=== PATIENT | male | born 1950 | race Caucasian/White ===

== ENCOUNTER 2022-11-13 11:39 | Emergency (ER) | payer OTHER, SELFPAY ==
[2022-11-13] VITALS (39 sets, daily range): BP systolic 34–148; BP diastolic 20–122; PULSE 70–180; RESP 12–18; TEMP 35.2–36.6; O2SAT 66–100; BMI 24.3
--- NOTE | 2022-11-13 | CRLHL7_ITS ---
For Patients: As a result of the Cures Act, medical imaging exams and procedure reports are released immediately into your electronic medical record. You may view this report before your referring provider. If you have questions, please contact your health care provider. INDICATION: Fall, on thinners. COMPARISON: None. TECHNIQUE: CT of the head without IV contrast. Coronal and sagittal reconstructions. FINDINGS: No intracranial hemorrhage, mass effect, or evidence of acute infarct. No midline shift. No abnormal extra-axial fluid collections. Mild generalized cerebral and cerebellar volume loss. Normal caliber ventricular system. Physiologic basal ganglia calcification on the right. Orbits and extraocular muscles are symmetric. The paranasal sinuses and mastoid air cells are clear. No acute fracture identified. Soft tissues are unremarkable. IMPRESSION: No acute intracranial findings. Please note that all CT scans at this facility use dose modulation, iterative reconstruction, and/or weight-based dosing when appropriate to reduce radiation dose to as low as reasonably achievable. Dictated by Bettie Nicole MD @ 11/13/2022 12:44:24 PM (Electronically Signed)
--- NOTE | 2022-11-13 | CRLHL7_ITS ---
For Patients: As a result of the Cures Act, medical imaging exams and procedure reports are released immediately into your electronic medical record. You may view this report before your referring provider. If you have questions, please contact your health care provider. INDICATION: Fall. COMPARISON: None. TECHNIQUE: CT of the cervical spine without IV contrast. Coronal and sagittal reconstructions. FINDINGS: No acute fracture or traumatic malalignment of the cervical spine. Mild anterolisthesis of C2 on C3. No significant disc space narrowing. Multilevel endplate spurring, facet arthropathy, and varying degrees of neural foraminal narrowing. Mild spinal canal stenosis at C3-C4, C4-C5, and C6-C7. No prevertebral soft tissue swelling. Visualized intracranial contents are unremarkable. The mastoid air cells are clear. IMPRESSION: 1. No acute fracture or traumatic malalignment of the cervical spine. 2. Spondylotic changes as described above. Please note that all CT scans at this facility use dose modulation, iterative reconstruction, and/or weight-based dosing when appropriate to reduce radiation dose to as low as reasonably achievable. Dictated by Bettie Nicole MD @ 11/13/2022 12:52:54 PM (Electronically Signed)
--- NOTE | 2022-11-13 11:55 | CRLHL7_ITS ---
For Patients: As a result of the Century Cures Act, medical imaging exams and procedure reports are released immediately into your electronic medical record. You may view this report before your referring provider. If you have questions, please contact your health care provider. INDICATION: Trauma TECHNIQUE: Chest 2 views. COMPARISON: None FINDINGS: Cardiovascular and mediastinum: Heart size and vasculature are normal in caliber and appearance. Mediastinum is within normal limits. Lungs and pleural spaces: Lungs are clear. No sign of infiltrate or mass. No sign of pleural effusion. No pneumothorax. Bones and soft tissues: Degenerative changes thoracic spine. IMPRESSION: Unremarkable chest. Dictated by Lai Chaparro MD @ 11/13/2022 12:48:17 PM Dictated by: Lai Chaparro MD @ 11/13/2022 12:48:20 (Electronically Signed)
--- NOTE | 2022-11-13 11:58 | CRLHL7_ITS ---
For Patients: As a result of the Cures Act, medical imaging exams and procedure reports are released immediately into your electronic medical record. You may view this report before your referring provider. If you have questions, please contact your health care provider. Indication: Low back pain Technique: Two views of the lumbosacral spine were acquired Comparison: There are no prior studies for comparison Findings: Bone mineral density is decreased. There are moderate to severe degenerative changes diffusely. This involves the disc spaces and the facet joints. There is no visible acute fracture, dislocation or destructive process. Calcifications in the right upper quadrant are probably calcified lymph nodes. Impression: Demineralization. Significant degenerative changes. No visible acute fracture, dislocation or destructive process. Dictated by Phu Pittman MD @ 11/13/2022 1:19:13 PM (Electronically Signed)
[2022-11-13] MEDS: 0.9 % SODIUM CHLORIDE 1000 ml 1,000 ML IV (12:00)
[2022-11-13 12:08] LABS: Lactate* 3.4 mmol/L (0.5-1.9)
[2022-11-13 12:18] LABS: Hemoglobin* 14.5 gm/dL (13.5-17.5); Immature Granulocytes Pct Auto 0.5 %; Lymphocytes Percent Auto 3.9 % (20-44); Mean Corpuscular HGB Conc 34 gm/dL (32-36); Mean Corpuscular Hemoglobin 30 pg (26-34); Mean Corpuscular Volume 89 fL (80-100); Monocytes Percent Auto 6.2 % (0.0-11.0); Neutrophils Percent Auto 89.4 % (42.0-72.0); Platelet Count* 200 K/uL (140-440); RDW Coefficient of Variation % 12.8 % (11.5-15.5); Red Blood Count 4.85 m/uL (4.30-5.90); White Blood Count* 20.83 K/uL (4.50-11.00)
[2022-11-13 12:21] LABS: Slide Review Reflex No
--- NOTE | 2022-11-13 12:23 | ED.NURSE ---
Pt back from CT. Hr remains into 140s. IV fluids given per OCT.
[2022-11-13 12:27] LABS: Chloride* 97 mmol/L (96-114)
[2022-11-13 12:28] LABS: Potassium* 3.9 mmol/L (3.6-5.1); Sodium* 129 mmol/L (135-149)
[2022-11-13 12:30] LABS: Creatinine* 0.7 mg/dL (0.5-1.5); Est. Creatinine Clearance* 60.59; Estimated Glomerular Filt Rate 97 ml/min; Lipase* 38 U/L (23-300)
[2022-11-13 12:31] LABS: Bilirubin Direct* 0.1 mg/dL (0.0-0.5); Bilirubin Total* 1.7 mg/dL (0.1-1.5); Blood Urea Nitrogen* 18 mg/dL (7-30); Calcium* 8.5 mg/dL (8.4-10.6); Carbon Dioxide* 23 mmol/L (20-32); Glucose* 150 mg/dL (60-115); Total Protein* 7.1 g/dL (6.0-8.3)
[2022-11-13 12:32] LABS: Alanine Aminotransferase* 27 U/L (4-50); Alkaline Phosphatase* 71 U/L (40-150); Aspartate Amino Transferase* 42 U/L (12-35)
[2022-11-13 12:33] LABS: Ethanol* < 0.01 % (0.01-0.03)
[2022-11-13 12:34] LABS: C Reactive Protein* 6.6 mg/dL (0.5-1.0)
[2022-11-13 12:39] LABS: D Dimer Quantitative* 8.78 ug/ml (0.00-0.50)
[2022-11-13 12:41] LABS: NT Pro B Type NatriureticPept* 3560 pg/mL
[2022-11-13 12:43] LABS: Troponin I* 0.04 ng/mL (0.01-0.04)
[2022-11-13 12:47] LABS: INR 1.16 (0.91-1.10); Prothrombin Time 15.5 Seconds
[2022-11-13 12:48] LABS: Partial Thromboplastin Time* 26 Seconds (23-33)
[2022-11-13 12:52] LABS: PCR FLU A Negative PCR FLU A (Negative); PCR FLU B Negative PCR FLU B (Negative); PCR RSV Negative PCR RSV (Negative)
[2022-11-13 12:57] LABS: SARS PCR* Negative SARS-CoV-2 (Negative)
[2022-11-13] MEDS: LORazepam 2 MG/ML inj 1 MG IVP (13:15)
--- NOTE | 2022-11-13 13:15 | ED.NURSE ---
Called into patient room by pts daughter. Patient having seizure like activity, not responsive to commands. MD called to beside. Dr Mcadams at bedside immediately. 1mg ativan verbal order. Given by STAN Pantoja.
--- NOTE | 2022-11-13 13:18 | ED.NURSE ---
Dr Mcadams at bedside completing bedside ultrasound. Believes patient has a ruptured AAA. Textile Supervisor verblized to facilities technician to clear CT scan for emergent CT. STAGE SET DESIGNER to call in air transport for transfer. [facility]W contacted for tx.
--- NOTE | 2022-11-13 13:20 | ED.NURSE ---
BG checked - 147. Dr Mcadams at bedside. Talking with Daughter.
[2022-11-13 13:28] LABS: Magnesium* 1.7 mg/dL (1.5-2.6)
--- NOTE | 2022-11-13 13:37 | ED.NURSE ---
Patient minimally responsive. Unable to obtain blood pressure. Seizure like activity restarted. Dr Mcadams at bedside. Decision made to intubate. Code called 1338. See code blue record for remaining of documention.
[2022-11-13] MEDS: 0.9 % SODIUM CHLORIDE 1000 ml 1,000 ML 6000 ML IV ×3 (13:38→14:24)
[2022-11-13] MEDS: SUCCINYLCHOLINE 20 MG/ML INJ 200 MG IVP (13:42)
[2022-11-13] MEDS: ETOMIDATE 2 MG/ML inj 30 MG IVP (13:42)
--- NOTE | 2022-11-13 13:42 | CRLHL7_ITS ---
For Patients: As a result of the Century Cures Act, medical imaging exams and procedure reports are released immediately into your electronic medical record. You may view this report before your referring provider. If you have questions, please contact your health care provider. Indication: Abdominal aortic aneurysm. The new onset abdominal pain Technique: Contiguous axial CTA images of the chest/abdomen/pelvis were acquired after the uneventful administration of IV contrast. Coronal and sagittal reformations generated and reviewed. 3D reconstructed images generated on an independent workstation. Comparison: None Findings: Vascular: Normal heart size. Coronary artery calcification. The thoracic aorta demonstrates no aneurysm or dissection. Three vessel aortic arch. The celiac trunk is markedly attenuated which may be due to vasospasm. The renal arteries are patent bilaterally. There is a ruptured infrarenal abdominal aortic aneurysm with active extravasation. There is a massive retroperitoneal hematoma surrounding the ruptured aneurysm extending into the pelvis. No contrast is noted extending into the iliac arteries bilaterally. Nonvascular: No pericardial effusion. Small hiatal hernia. No mediastinal adenopathy. ET tube is 4 cm above the moe. There is some linear mucus or other debris in the distal trachea. The airways are patent. There are no pulmonary opacities. 4 mm right middle lobe pulmonary nodule (series 6, image 157). Pleural spaces are clear. No axillary or supraclavicular adenopathy. Visualized portions of thyroid normal. Early arterial/noncontrast imaging limits evaluation of solid abdominal organs. Cholelithiasis without evidence of cholecystitis. Noncontrast appearance of liver, spleen, and right kidney unremarkable. Left kidney is displaced by the retroperitoneal hematoma but otherwise unremarkable. No bowel obstruction. No definite adenopathy though evaluation of the pelvis is limited. Urinary bladder decompressed but otherwise unremarkable. Prostate size is within normal limits. Impression: 1. Ruptured abdominal aortic aneurysm with active extravasation. Massive retroperitoneal and pelvic hematoma. Discussed with Dr. Bolaños at 1445. 2. Small hiatal hernia 3. Cholelithiasis 4. Diverticulosis Please note that all CT scans at this facility use dose modulation, iterative reconstruction, and/or weight-based dosing when appropriate to reduce radiation dose to as low as reasonably achievable. Dictated by Luca Raymundo MD @ 11/13/2022 3:14:16 PM (Electronically Signed)
[2022-11-13] MEDS: EPINEPHrine 0.1 MG/ML SYRINGE 1 MG IVP ×4 (13:51→14:04)
[2022-11-13] MEDS: MIDAZOLAM HCL 1 MG/ML inj 2 MG IVP ×3 (13:59→14:37)
--- NOTE | 2022-11-13 14:00 | ED.NURSE ---
Pt to CT scan. Air transport has landed at helicopter. Informed by air they are unable to transfer due to weather. Code 3 ground transfer requested.
--- NOTE | 2022-11-13 15:19 | ED.NURSE ---
Report given to VALENTIN CANDY BUTCHER.
--- NOTE | 2022-11-13 16:29 | ED.SYNCOPE ---
HPI - Syncope General Date Seen: 11/13/22 Chief Complaint: Syncope/Fainted Stated Complaint: Fall, on blood thinners Time Seen by Provider: 11/13/22 11:54 Source: patient, family and EMS Mode of arrival: EMS Limitations: no limitations History of Present Illness HPI narrative: Patient is a 68 for old gentleman who presents here via EMS for fall at home, this occurred in his bathroom, he does not quite remember the fall that occurred, says he has poor recollection of this thinks he may have slept but cannot confirm that to me. Thinks he may have hit his head and neck her back. But again cannot confirm this. He was little bit hypotensive on the way in for the EMS, but his pressures were normal once he got here. Denies any significant chest pain, shortness of breath, neck pain or any pain at all. Patient of the [facility] is on medications for hypertension but does remember what these are. Says he is on a blood thinner, but does remember the name of this and said that could only be also aspirin. Lives with his daughter for the last 6 years she is here, does drink alcohol 2-4 oz per week, no history of previous alcoholic seizures, withdrawal, MD complaint: loss of consciousness, felt faint and almost passed out Onset (ago): hour(s) Prodromal symptoms: none Witnessed: No Context: during exertion and standing up Injuries sustained associated with event: neck and head Current symptoms: none Treatments prior to arrival: none Related Data Home Medications Medication Instructions Recorded Confirmed amolodipine 11/13/22 blood thinner 11/13/22 hctz 11/13/22 Allergies Allergy/AdvReac Type Severity Reaction Status Date / Time No Known Drug Allergies Allergy Verified 11/13/22 11:54 Review of Systems Status of ROS: Reports: 10 or more systems reviewed and unremarkable except as noted in History and below Exam Narrative: Exam Narrative: Patient is seen in room a, he is in no apparent distress speaking to me normally pupils are equal round reactive to light, there is no scleral icterus redness, TMs are normal, oropharynx is normal, there is no adenopathy anterior posterior chains, is neck is supple full range of motion is noted, chest is good air entry bilaterally with no wheezing crackles noted, heart sounds no clicks murmurs or gallops, no tenderness to palpation over his chest, there is no evidence of any bruising over his head or neck, or his back. Abdomen is soft and scaphoid there no guarding, no tenderness no organomegaly, bowel sounds are normal, his good normal peripheral perfusion, with normal pulses in his lower extremities DT and posterior tibial, moves his extremities upper and lower normally. Cranial nerves 3-12 are normal good distal and proximal muscle strength, skin reveals no petechiae or rashes. Const: Vital Signs, click to edit/add: Vital Signs - 24 hr 11/13/22 11:45 11/13/22 15:08 11/13/22 14:37 Temperature 97.8 F 95.4 F L Pulse Rate Pulse Rate [Left P ulse Oximeter] 134 H Respiratory Rate 16 16 18 Blood Pressure 83/69 L Blood Pressure [Le ft Upper Arm] 117/91 H Pulse Oximetry 100 Oxygen Delivery Me thod Nasal Cannula 11/13/22 14:44 11/13/22 11:58 11/13/22 12:00 Temperature 95.4 F L Pulse Rate 132 H 127 H Pulse Rate [Left P ulse Oximeter] Respiratory Rate 18 Blood Pressure 83/69 L Blood Pressure [Le ft Upper Arm] Pulse Oximetry 97 96 Oxygen Delivery Me thod 11/13/22 12:02 11/13/22 12:24 11/13/22 12:29 Temperature Pulse Rate 133 H 130 H 135 H Pulse Rate [Left P ulse Oximeter] Respiratory Rate Blood Pressure 110/78 94/79 Blood Pressure [Le ft Upper Arm] Pulse Oximetry 97 97 97 Oxygen Delivery Me thod 11/13/22 12:30 11/13/22 12:32 11/13/22 12:45 Temperature Pulse Rate 139 H 131 H 120 H Pulse Rate [Left P ulse Oximeter] Respiratory Rate Blood Pressure 96/80 Blood Pressure [Le ft Upper Arm] Pulse Oximetry 96 96 97 Oxygen Delivery Me thod 11/13/22 12:46 11/13/22 13:00 11/13/22 13:02 Temperature Pulse Rate 109 H 111 H 113 H Pulse Rate [Left P ulse Oximeter] Respiratory Rate Blood Pressure 123/89 140/77 H Blood Pressure [Le ft Upper Arm] Pulse Oximetry 97 97 92 Oxygen Delivery Me thod 11/13/22 13:05 11/13/22 13:11 11/13/22 13:16 Temperature Pulse Rate Pulse Rate [Left P ulse Oximeter] Respiratory Rate Blood Pressure 63/41 L 115/50 L 95/59 L Blood Pressure [Le ft Upper Arm] P[facility]ximetry [facility]13[facility] 13:18 11/13/22 13:24 11/13/22 13:27 Temperature Pulse Rate Pulse Rate [Left P ulse Oximeter] Respiratory Rate Blood Pressure 85/46 L 40/25 L 36/21 L Blood Pressure [Le ft Upper Arm] Pulse Oximetry [facility] 11/13/22 13:31 11/13/22 13:38 11/13/22 13:40 Temperature Pulse Rate 73 102 H Pulse Rate [Left P ulse Oximeter] Respiratory Rate Blood Pressure 68/54 L Blood Pressure [Le ft Upper Arm] Pulse Oximetry 73 L 73 L [facility] 11/13/22 13:45 11/13/22 13:46 11/13/22 13:47 Temperature Pulse Rate 144 H 147 H 143 H Pulse Rate [Left P ulse Oximeter] Respiratory Rate Blood Pressure 86/66 L Blood Pressure [Le ft Upper Arm] Pulse Oximetry 87 L 94 90 [facility] 11/13/22 13:52 11/13/22 13:57 11/13/22 14:18 Temperature Pulse Rate 149 H 180 H Pulse Rate [Left P ulse Oximeter] Respiratory Rate 12 Blood Pressure 94/74 110/28 L 148/122 H Blood Pressure [Le ft Upper Arm] Pulse Oximetry 71 L 75 L [facility] 11/13/22 14:19 11/13/22 14:23 11/13/22 14:24 Temperature Pulse Rate Pulse Rate [Left P ulse Oximeter] Respiratory Rate 14 12 12 Blood Pressure 83/40 L 34/20 L Blood Pressure [Le ft Upper Arm] Pulse Oximetry [facility] 11/13/22 14:27 11/13/22 14:30 11/13/22 14:32 Temperature Pulse Rate Pulse Rate [Left P ulse Oximeter] Respiratory Rate 12 17 17 Blood Pressure 109/87 83/69 L Blood Pressure [Le ft Upper Arm] Pulse Oximetry [facility] Course Hospital Course: Head and neck CT were reviewed by me, as I met him in the hallway on the way to the CT scanner when he initially arrived by EMS P these did not show any acute findings such as fracture, bleed. Course in the emergency room, he had had what was described to me by my nurse as a tonic clonic seizure, I witnessed a clonic part of it, we gave him 1 mg of Ativan at that point. His daughter told me just before he had the seizure that he was complaining of abdominal pain and then told me that he had been to the chiropractor last 3 days for back pain, that was the new were problem for him. He had persistent hypotension after he had his tonic clonic seizure, abdominal ultrasound point of care was performed by myself showed a large is greater than 7 cm aneurysm, with the negrito aneurysmal hematoma, and his abdomen, he of immediately got 2 more IVs, emergency blood common because of the persistence of his hypotension, he received IV fluids, by pressure bag. Unfortunately his pressures continue to be in the 60 systolic range, he became more obtunded, over the course of approximately 10 minutes, and a decision then was made to start pressors, and intubate him for airway protection. He was intubated with an 8 0 endotracheal tube at 25 cm by myself atraumatically with a glide scope, using RSI. This was atraumatically, and we had good end-tidal CO2. Unfortunately his pressures continue to go down, and we were unable to get a blood pressure I could not hear heart sounds. He received epinephrine and CPR was started. He continued to be in a sinus tachycardia rhythm, and was thought that this was likely PE a. Blood was started and ultrasound confirmed that there was now cardiac activity. He did not appear to have a pericardial effusion, his abdomen be became progressively more distended, with likely clot. We discussed the case with the [facility] vascular surgeon, who recommended a CT even knowing he is unstable at this point, this is for the thought that he possibly could be a salvage candidate. They need to know what they were getting into. Brought over to the CT scanner, and we were able to do a CT, which clearly showed a leaking abdominal aneurysm. With active extravasation. [facility] vascular surgeon reviewed this and thought that he would be a candidate if they can get him here, any did not arrest. He was started on epinephrine drip, which helped the issue, I was able also to do well a IV line in his right femoral vein. Using ultrasound. I did not think I had time to do a central line. He was transferred over after receiving a Helton catheter NG, intubated, on vasopressors, to EMS. We initially thought we would be able to fly him, but flight crew said they were unable to go because of the weather. We had to send him by ground. Accepted to the [facility] Emergency Room, condition critical, total critical care time spent with this patient [id number] contact was 2 hours. Vital Signs Vital signs: Initial Vital Signs Temperature 97.8 F 11/13/22 11:45 Temperature Source Temporal Artery Scan 11/13/22 11:45 Pulse Rate 134 H 11/13/22 11:45 Respiratory Rate 16 11/13/22 11:45 Blood Pressure 117/91 H 11/13/22 11:45 Blood Pressure Mean 99 11/13/22 11:45 Blood Pressure Position Supine 11/13/22 11:45 Pulse Oximetry 100 11/13/22 11:45 Oxygen Delivery Method Nasal Cannula 11/13/22 11:45 Vital Signs Temperature 97.8 F 11/13/22 11:45 Pulse Rate 134 H 11/13/22 11:45 Respiratory Rate 16 11/13/22 11:45 Blood Pressure 117/91 H 11/13/22 11:45 Pulse Oximetry 100 11/13/22 11:45 Oxygen Delivery Method Nasal Cannula 11/13/22 11:45 Temperature 95.4 F L 11/13/22 14:44 Pulse Rate 180 H 11/13/22 13:57 Respiratory Rate 16 11/13/22 15:08 Blood Pressure 83/69 L 11/13/22 14:44 Pulse Oximetry 75 L 11/13/22 13:57 Oxygen Delivery Method Nasal Cannula 11/13/22 11:45 MDM - Syncope MDM Narrative Medical decision making narrative: Life-threatening differential diagnosis considered include: Cardiac arrhythmia, acute blood loss, and intracranial bleed. Other differential diagnosis include but are not limited to vasovagal syncope, orthostatic syncope, seizure, as well as other etiologies Differential Diagnosis Differential diagnosis: Likely syncope due to orthostatic hypotension, vasovagal syncope, pulmonary embolism and dehydration Medical Records Attestation: I reviewed the patient's medical records. Lab Data Attestation: I reviewed the patient's lab results. Labs: Lab Results 11/13/22 11/13/22 11/13/22 Range/Units 12:00 13:44 14:32 WBC 20.83 H (4.50-11.00) K/uL RBC 4.85 (4.30-5.90) m/uL Hgb 14.5 (13.5-17.5) gm/dL Hct 43.0 (37.0-53.0) % MCV 89 (80-100) fL MCH 30 (26-34) pg MCHC 34 (32-36) gm/dL RDW Coeff of Anaya 12.8 (11.5-15.5) % Plt Count 200 (140-440) K/uL Neut % (Auto) 89.4 H (42.0-72.0) % Lymph % (Auto) 3.9 L (20-44) % Sharp % (Auto) 6.2 (0.0-11.0) % Eos % (Auto) 0.0 (0.0-7.0) % Baso % (Auto) 0.0 (0.0-3.0) % Neut # (Auto) 18.60 H (1.7-7.0) K/uL Lymph # (Auto) 0.80 L (0.90-2.90) K/uL Sharp # (Auto) 1.30 H (0.00-0.90) K/UL Eos # (Auto) 0.00 (0.00-0.50) K/uL Baso # (Auto) 0.00 (0.00-0.30) K/uL INR 1.16 H (0.91-1.10) APTT 26 (23-33) Seconds D-Dimer Quant (PE/DVT) 8.78 H (0.00-0.50) ug/ml Sodium 129 L (135-149) mmol/L Potassium 3.9 (3.6-5.1) mmol/L Chloride 97 (96-114) mmol/L Carbon Dioxide 23 (20-32) mmol/L BUN 18 (7-30) mg/dL Creatinine 0.7 (0.5-1.5) mg/dL Estimated Creat Clear 60.59 Estimated GFR 97 ml/min Glucose 150 H (60-115) mg/dL Lactate 3.4 H (0.5-1.9) mmol/L Calcium 8.5 (8.4-10.6) mg/dL Magnesium 1.7 (1.5-2.6) mg/dL Total Bilirubin 1.7 H (0.1-1.5) mg/dL Direct Bilirubin 0.1 (0.0-0.5) mg/dL AST 42 H (12-35) U/L ALT 27 (4-50) U/L Alkaline Phosphatase 71 (40-150) U/L Troponin I 0.04 (0.01-0.04) ng/mL C-Reactive Protein 6.6 H (0.5-1.0) mg/dL NT-Pro-B Natriuret Pep 3560 pg/mL Total Protein 7.1 (6.0-8.3) g/dL Albumin 4.0 (3.3-5.0) g/dL Lipase 38 (23-300) U/L Ethyl Alcohol < 0.01 L (0.01-0.03) % SARS-CoV-2 (PCR) Negative SARS-CoV-2 (Negative) Influenza Type A (PCR) Negative PCR FLU A (Negative) Influenza Type B (PCR) Negative PCR FLU B (Negative) RSV (PCR) Negative PCR RSV (Negative) Blood Type B Positive Cancelled Rho(D) Type Cancelled Antibody Screen NEGATIVE Cancelled Crossmatch (AHG) See Detail See Detail Imaging Data CT Chest/Ab/Pelvis: Attestation: I have reviewed the pertinent imaging results. My impression: Large ruptured aortic aneurysm with retroperitoneal hematoma. Radiologist's impression: atient: VINCE SALMERON Facility:?[facility] Patient ID:?[id number] Site Patient ID:?[id number]. Site :?[id number] Study:?CT Chest/Abd/Pelvis WO/W AORTIC DISSECTION W/ 95 I-11/13/2022 2:14:20 PM Ordering Physician:?Adalberto Hallman Final Report: Indication: Abdominal aortic aneurysm. The new onset abdominal pain Technique: Contiguous axial CTA images of the chest/abdomen/pelvis were acquired after the uneventful administration of IV contrast. Coronal and sagittal reformations generated and reviewed. 3D reconstructed images generated on an independent workstation. Comparison: None Findings: Vascular: Normal heart size. Coronary artery calcification. The thoracic aorta demonstrates no aneurysm or dissection. Three vessel aortic arch. The celiac trunk is markedly attenuated which may be due to vasospasm. The renal arteries are patent bilaterally. There is a ruptured infrarenal abdominal aortic aneurysm with active extravasation. There is a massive retroperitoneal hematoma surrounding the ruptured aneurysm extending into the pelvis. No contrast is noted extending into the iliac arteries bilaterally. Nonvascular: No pericardial effusion. Small hiatal hernia. No mediastinal adenopathy. ET tube is 4 cm above the moe. There is some linear mucus or other debris in the distal trachea. The airways are patent. There are no pulmonary opacities. 4 mm right middle lobe pulmonary nodule (series 6, image 157). Pleural spaces are clear. No axillary or supraclavicular adenopathy. Visualized portions of thyroid normal. Early arterial/noncontrast imaging limits evaluation of solid abdominal organs. Cholelithiasis without evidence of cholecystitis. Noncontrast appearance of liver, spleen, and right kidney unremarkable. Left kidney is displaced by the retroperitoneal hematoma but otherwise unremarkable. No bowel obstruction. No definite adenopathy though evaluation of the pelvis is limited. Urinary bladder decompressed but otherwise unremarkable. Prostate size is within normal limits. Impression: 1. Ruptured abdominal aortic aneurysm with active extravasation. Massive retroperitoneal and pelvic hematoma. Discussed with Dr. Bolaños at 1445. 2. Small hiatal hernia 3. Cholelithiasis 4. Diverticulosis Please note that all CT scans at this facility use dose modulation, iterative reconstruction, and/or weight-based dosing when appropriate to reduce radiation dose to as low as reasonably achievable. Dictated by Luca Raymundo MD @ 11/13/2022 3:14:16 PM (Electronic Signature) ECG Data Attestation: I personally reviewed and interpreted this ECG as follows: ECG interpretation date: 11/13/22 Interpretation: Sinus tachycardia with rate 136, no specific ST wave abnormality noted. QRS QT and MD intervals normal there Critical Care Time Critical Care Time Critical Care Time: Yes Attestation: The patient required my highest level preparedness to intervene emergently and I personally spent this critical care time directly and personally managing the patient. This critical care time included: Obtaining a history; Examining the patient; Pulse oximetry; Ordering and reviewing of studies; Arranging urgent treatment with development of a management plan; Evaluation of patients response to treatment; Frequent reassessment discussions with other providers. This critical care time was performed to assess and manage the high probability of imminent life-threatening deterioration that could result in multiorgan failure. It was exclusive of separate billable procedures and treating other patients and teaching time. Total Critical Care Time in Minutes: 120 Discharge Plan Discharge Clinical Impression: Syncope, Abdominal aortic aneurysm rupture Patient Disposition: Xfer [facility] Discharge Location: [facility] Condition: Critical Prescriptions: No Action hctz amolodipine blood thinner Stand Alone Forms: MyHealth Info Instructions Procedures FAST Exam FAST Exam 1: US method: abdominal Was an Echo performed?: No Fluid in Morison's pouch: Yes Fluid in Splenorenal Junction: Yes Fluid around bladder, Transverse view: Yes Fluid around bladder, Sagittal view: Yes Fluid in Pericardial Sac: No Gross Wall Motion Abnormality: Yes Study normal for this patient: No Images saved for further review: No Additional Comments: Fast exam shows a very large abdominal aortic aneurysm at 7 cm, with the hematoma noted around it.
[2022-11-13] MEDS: 0.9 % SODIUM CHLORIDE 1000 ml 1,000 ML 999 ML IV (17:05)
== END 2022-11-13 15:00 | disposition short-term general hospital (02) ==
PROVIDERS: Emergency Provider Family Medicine
DX: I71.30 Abdominal aortic aneurysm, ruptured, unspecified (principal)
CPT/HCPCS: 31500; 36415; 36430; 70450; 71046; 71270; 72100; 72125; 74177; 76705; 80048; 80076; 80306; 81001; 82077; 83605; 83690; 83735; 83880; 84484; 85025; 85379; 85610; 85730; 86140; 86850; 86900; 86901; 86922; 87502; 87634; 87635; 93005; 94761; 99285; 99291; 99292; G0390; J0171; J0330; J2060; J2250; J7030; J7050; P9016; Q9967

== ENCOUNTER 2022-11-13 14:17 | Outpatient (CLI) | payer OTHER, SELFPAY | END 2022-11-13 14:18 | disposition home or self-care (01) | PROVIDERS: Visit Provider Family Medicine | DX: I71.30 Abdominal aortic aneurysm, ruptured, unspecified (principal) | CPT/HCPCS: A0425; A0434 ==